=== PATIENT | female | born 1955 | race Caucasian/White ===

== ENCOUNTER → 2016-10-23 | Outpatient (CLI) | payer MEDICARE ==
[~2016-10-23] MED LIST: CELEXA40 MG PO; CYCLOBENZAPRINE10 MG PO; DAYPRO600 M1 PO; IBU800 MG PO; LOVASTATIN20 MG PO; MORPHINE SULFAT15 M7 PO; OXYBUTYNIN5 MG PO; PERCOCET 325 MG1 TA7 PO; ROBAXIN750 MG PO; ROXICODONE30 MG PO; Synthroid,Levo25 MCG PO; TRILEPTAL600 MG PO; VICODIN HP 6601 TAB PO; VIT D PO; [UNRECOGNIZED DRUG - OTHER] PO
== END ==
LOC: RAD 20:14
DX: G89.29 Other chronic pain (principal); M25.561 Pain in right knee; M25.861 Other specified joint disorders, right knee

== ENCOUNTER → 2016-11-14 | Day surgery (SDC) | payer MEDICARE ==
[~2016-11-14] VITALS: Ht 160 cm; Wt 62.6 kg
[~2016-11-14] MED LIST changes: +CYMBALTA30 MG PO; +NEURONTIN100 MG PO
[2016-11-14 10:37] VITALS: BP 160/88
[2016-11-14 11:14] VITALS: BP 120/47
[2016-11-14 11:29] VITALS: BP 104/61
[2016-11-14 11:44] VITALS: BP 115/70
== END | disposition home or self-care (01) ==
LOC: SDC 11-12 10:15
DX: Z09 Encounter for follow-up examination after completed treatment for conditions other than malignant neoplasm (principal); D12.3 Benign neoplasm of transverse colon; K44.9 Diaphragmatic hernia without obstruction or gangrene; K29.50 Unspecified chronic gastritis without bleeding; K22.2 Esophageal obstruction; E78.00 Pure hypercholesterolemia, unspecified; F32.9 Major depressive disorder, single episode, unspecified; J44.9 Chronic obstructive pulmonary disease, unspecified; E03.9 Hypothyroidism, unspecified; F17.210 Nicotine dependence, cigarettes, uncomplicated; Z90.710 Acquired absence of both cervix and uterus; Z85.3 Personal history of malignant neoplasm of breast; Z86.010 Personal history of colon polyps

== ENCOUNTER → 2016-12-11 | Outpatient (CLI) | payer MEDICARE ==
[2016-12-11 19:13] LABS: BODY FLUID RBC < 1000 /uL; BODY FLUID WBC 184 /uL
[2016-12-11 20:19] LABS: BF LYMPHOCYTES 18 %; BF MONOCYTES 81 %; BF NEUTROPHILS 1 %
[2016-12-11 20:20] LABS: BODY FLUID TYPE SYNOVIAL
== END | disposition home or self-care (01) ==
LOC: LAB 16:44
PROVIDERS: Orthopaedic Surgery
DX: M25.561 Pain in right knee (principal); M25.461 Effusion, right knee

== ENCOUNTER → 2016-12-20 | Outpatient (CLI) | payer MEDICARE | END | disposition home or self-care (01) | LOC: MRI 03:00 | DX: M25.461 Effusion, right knee (principal) ==

== ENCOUNTER → 2017-07-05 | Outpatient (CLI) | payer MEDICARE ==
[2017-07-05 13:51] LABS: BASO # 0.1 10*3/uL (0.0-0.1); BASO % 1.1 % (0.0-1.0); EOS # 0.1 10*3/uL (0.0-0.4); EOS % 1.5 % (1.0-4.0); HEMATOCRIT 42.2 % (37.0-47.0); HEMOGLOBIN 14.2 g/dl (12.0-16.0); LYMPH # 1.5 10*3/uL (1.3-4.4); MEAN CELL VOLUME 92.7 fl (81.0-99.0); MEAN CORPUSCULAR HGB 31.2 pg (27.0-31.0); MEAN CORPUSCULAR HGB CONC 33.6 g/dl (33.0-37.0); MEAN PLATELET VOLUME 10.6 fl (9.6-12.3); MONO # 0.5 10*3/uL (0.1-1.0); MONO % 9.2 % (3.0-9.0); NEUT # 3.1 10*3/uL (2.3-7.9); NEUT % 58.8 % (47.0-73.0); PLATELET COUNT AUTOMATED 232 10*3/uL (130-400); RED BLOOD COUNT 4.55 10*6/uL (4.10-5.10); RED CELL DISTRI WIDTH 12.5 % (0-14.5); WHITE BLOOD COUNT 5.3 10*3/uL (4.8-10.8)
[2017-07-06 08:10] LABS: RHEUMATOID ARTHRITIS FACTOR <10.0 IU/mL (0.0-13.9)
[2017-07-06 12:06] LABS: ANTI-RNP ANTIBODIES <0.2 AI (0.0-0.9)
[2017-07-07 11:04] LABS: LUPUS DRVVT 34.6 sec (0.0-47.0); LUPUS REFLEX INTERPRETATION Comment: (.); PTT-LA 36.7 sec (0.0-51.9)
[2017-07-07 21:06] LABS: CCP ANTIBODIES IGG/IGA 4 units (0-19)
== END | disposition home or self-care (01) ==
LOC: LAB 13:02
PROVIDERS: Orthopaedic Surgery
DX: M25.461 Effusion, right knee (principal)

== ENCOUNTER → 2017-09-26 | Outpatient (CLI) | payer MEDICARE | END | disposition home or self-care (01) | LOC: RAD 22:14 | DX: M51.36 Other intervertebral disc degeneration, lumbar region (principal) ==

== ENCOUNTER → 2017-10-09 | Outpatient (CLI) | payer MEDICARE ==
[~2017-10-09] MED LIST changes: +ATARAX,VISTARIL50 MG PO; +FLONASE ALLERG9.9 ML NAS; +METOPROLOL SUCC25 M2 PO; +NICOTROL10 MG INH; +PANTOPRAZOLE SO40 MG PO; +PRILOSEC20 M1 PO; +Vitamin D PO; +ZESTRIL,PRINIVIL5 MG PO
== END | disposition home or self-care (01) ==
LOC: RAD 15:46
DX: M79.672 Pain in left foot (principal); Z91.81 History of falling

== ENCOUNTER 2017-10-29 16:15 | Inpatient (IN) | payer MEDICARE ==
[~2017-10-29] VITALS: Ht 160 cm; Wt 63.2 kg
--- NOTE | ~2017-10-29 | CON ---
[place], [place] REPORT OF CONSULTATION NAME: CAILIN SPEAR [facility] #: [id number] UNIT #: [id number] ROOM: 415 DOCTOR: REY DUNCAN MD BIRTHDATE: [birth year] DOS: 10/30/2017 CARDIOLOGY CONSULTATION REASON FOR CONSULTATION: Chest pain. HISTORY OF PRESENT ILLNESS: The patient is a 62-year-old woman, who has no previous history of heart disease. She does have a history of cigarette abuse and a family history of heart disease in her father, who had a heart attack at age 50. She does have a hiatal hernia with gastroesophageal reflux. She states that she has had some brief episodes of chest pain, which usually resolve with a glass of milk. These come on at times and have come on at rest or when she is shopping. On the night of 10/28/2017, she was awakened from sleep by sharp pain. This started in her left anterior chest and radiated into her back. Once again, it was relieved by milk. She was seen on 10/29/2017 by her primary care provider, Nupur Burger. Ms. Burger noted that the patient had recently had a screening CT scan of the chest done at the [facility] and that it showed an aneurysm. Because of the chest pain and her abnormal CAT scan, the patient was sent to the hospital for evaluation and admission. Since she has been here, she has had no further chest pains. Her electrocardiograms have been normal and cardiac troponin levels have been normal. PAST MEDICAL HISTORY: Includes the followin. Breast cancer about 2005. She is status post lymph node dissection of the left axilla and had subsequent radiation and chemotherapy. 2. Hiatal hernia with gastroesophageal reflux disease. 3. Hyperlipidemia. 4. Hypothyroidism. 5. Tobacco abuse, long-term and ongoing. 6. History of appendectomy, hysterectomy and neck surgery. MEDICATIONS: Prior to admission, Flonase nasal spray daily, Cymbalta 20 mg daily, gabapentin 300 mg t.i.d., levothyroxine 25 mcg daily, lovastatin 20 mg daily and omeprazole 20 mg daily. ALLERGIES: The patient has no known drug allergies. FAMILY HISTORY: Positive for her father having heart attack at the age of 50. Her mother has hyperlipidemia. REVIEW OF SYSTEMS: The patient denies diplopia or loss of vision. She denies lightheadedness or syncope. She denies orthopnea or PND. She does have dyspnea with exertion. She does have a chronic nonproductive cough. She denies fevers, chills, sweats or recent weight change. Denies nausea or vomiting. She denies hemoptysis or hematemesis. She denies change in bowel or bladder habits. Denies blood in her urine or stools. She denies any peripheral edema. She denies any skin rashes. Remainder review of systems is negative except as noted above. [place], [place] REPORT OF CONSULTATION NAME: CAILIN SPEAR UNIT #: [id number] ROOM: 415 DOCTOR: REY DUNCAN MD BIRTHDATE: [birth year] SOCIAL HISTORY: The patient is . She does smoke a pack of cigarettes a day along with one marijuana joint per day. She does not consume alcohol. PHYSICAL EXAMINATION: GENERAL: The patient is well-nourished white female, who is awake, alert and oriented. VITAL SIGNS: Pulse is 80 and regular, blood pressure 148/90. She is afebrile. She weighs 63.2 kg and has a body mass index of 24.7. HEENT: Normocephalic and atraumatic. Extraocular muscles are intact. Sclerae are clear. Pupils are equal, round and react to light. The oral mucosa is moist. Tongue is midline. NECK: Supple. She has no jugular distention. Carotids are full. There are no bruits. She has no neck or supraclavicular masses, no thyromegaly. LUNGS: Respirations are unlabored. Her chest is clear. She does have expiratory prolongation and scattered wheezes. She has no rales. She has no chest wall tenderness or presacral edema. CARDIOVASCULAR: Her heart has a regular rhythm with a soft S4 gallop, but no S3 or murmur. The PMI is not displaced. There is no precordial heave, lift or thrill. Palpation of the anterior chest does elicit some pain, but does not reproduce her presenting symptoms. ABDOMEN: Soft and normally active without masses, organomegaly or bruits. EXTREMITIES: Showed no clubbing, cyanosis or edema. There was no Homans sign. Pedal pulses were full and equal bilaterally. LABORATORY DATA: I reviewed her electrocardiograms, which showed sinus rhythm and were normal tracings. Chest x-ray was normal image. IMPRESSION: 1. Atypical chest pain. Her pains come on at times and are relieved by milk. Most likely, this represents esophageal spasm or gastroesophageal reflux; however, she does have risk factors, and therefore, further cardiac assessment is indicated. 2. Reported abnormal CT scan of the chest with possible thoracic aneurysm. These records have been requested from the [facility]. 3. Ongoing cigarette abuse. 4. Hyperlipidemia. 5. Elevated blood pressure noted recently. PLAN: We will further her evaluation with a pharmacologic stress test. Further recommendations will depend upon the results of the stress test and review of the CAT scan of her chest. If her blood pressure does remain elevated and if she has a thoracic aneurysm, at a minimum, she should be treated with a beta-chano. Follow up will depend on the size of the aneurysm as it is present. [facility] and I thank the hospitalist physicians for asking our advice regarding her care. [place], [place] REPORT OF CONSULTATION NAME: CAILIN SPEAR UNIT #: [id number] ROOM: [facility] DOCTOR: REY DUNCAN MD BIRTHDATE: [birth year] REY DUNCAN MD CM:CONSTR:REPORT OF CONSULTATION 1330 10/31/17 0425 interface
[~2017-10-29 16:15] MED LIST changes: -ATARAX,VISTARIL50 MG PO; -FLONASE ALLERG9.9 ML NAS; -METOPROLOL SUCC25 M2 PO; -NICOTROL10 MG INH; -PANTOPRAZOLE SO40 MG PO; -PRILOSEC20 M1 PO; -Vitamin D PO; -ZESTRIL,PRINIVIL5 MG PO
[2017-10-29 16:18] VITALS: BP 162/100
[2017-10-29 16:44] LABS: BASO # 0.1 10*3/uL (0.0-0.1); EOS # 0.1 10*3/uL (0.0-0.4); HEMATOCRIT 39.8 % (37.0-47.0); HEMOGLOBIN 13.7 g/dl (12.0-16.0); LYMPH # 1.9 10*3/uL (1.3-4.4); LYMPH % 31.1 % (27.0-41.0); MEAN CELL VOLUME 92.6 fl (81.0-99.0); MEAN CORPUSCULAR HGB 31.9 pg (27.0-31.0); MEAN CORPUSCULAR HGB CONC 34.4 g/dl (33.0-37.0); MEAN PLATELET VOLUME 10.3 fl (9.6-12.3); MONO # 0.6 10*3/uL (0.1-1.0); MONO % 9.3 % (3.0-9.0); NEUT # 3.4 10*3/uL (2.3-7.9); NEUT % 56.3 % (47.0-73.0); PLATELET COUNT AUTOMATED 202 10*3/uL (130-400); RED CELL DISTRI WIDTH 12.6 % (0-14.5); WHITE BLOOD COUNT 6.1 10*3/uL (4.8-10.8)
[2017-10-29 16:53] LABS: ACT PARTIAL THROMBO TIME 24.9 SECONDS (20.8-31.5); INTERNATIONAL NORM RATIO 0.9 (2.0-3.5)
[2017-10-29 17:01] VITALS: BP 172/109
[2017-10-29 17:02] LABS: ALBUMIN 3.9 gm/dl (3.1-4.5); ALKALINE PHOSPHATASE 90 U/L (45-117); BUN 12 mg/dl (7-24); CHLORIDE 109 mmol/L (98-107); CREATININE 0.74 mg/dL (0.55-1.02); POTASSIUM 3.7 mmol/L (3.5-5.1); SGOT/AST 14 IU/L (3-35); SGPT/ALT 27 U/L (12-78); SODIUM 143 mmol/L (136-145); TOTAL PROTEIN 7.1 gm/dL (6.4-8.2)
[2017-10-29 17:03] LABS: TROPONIN I < 0.015 ng/ml (<0.045)
[2017-10-29 17:15] VITALS: BP 153/100
[2017-10-29 17:38] VITALS: BP 165/100
[2017-10-29 18:00] VITALS: BP 150/90
[2017-10-29] MEDS ORDERED: PRILOSEC20 M1 PO (19:04)
[2017-10-29] MEDS ORDERED: FLONASE ALLERG9.9 ML NAS (19:05)
[2017-10-29 20:00] VITALS: BP 138/87
[2017-10-30] VITALS: BP 125/76; BP 138/87
[2017-10-30 06:07] LABS: BASO # 0.1 10*3/uL (0.0-0.1); BASO % 1.2 % (0.0-1.0); EOS # 0.2 10*3/uL (0.0-0.4); EOS % 3.7 % (1.0-4.0); HEMATOCRIT 40.2 % (37.0-47.0); HEMOGLOBIN 13.7 g/dl (12.0-16.0); LYMPH # 2.1 10*3/uL (1.3-4.4); LYMPH % 42.8 % (27.0-41.0); MEAN CELL VOLUME 93.9 fl (81.0-99.0); MEAN CORPUSCULAR HGB CONC 34.1 g/dl (33.0-37.0); MEAN PLATELET VOLUME 10.7 fl (9.6-12.3); MONO # 0.5 10*3/uL (0.1-1.0); MONO % 11.1 % (3.0-9.0); PLATELET COUNT AUTOMATED 193 10*3/uL (130-400); RED BLOOD COUNT 4.28 10*6/uL (4.10-5.10); RED CELL DISTRI WIDTH 12.8 % (0-14.5); WHITE BLOOD COUNT 4.9 10*3/uL (4.8-10.8)
[2017-10-30 06:23] LABS: ALBUMIN 3.6 gm/dl (3.1-4.5); ALKALINE PHOSPHATASE 88 U/L (45-117); BUN 13 mg/dl (7-24); CHLORIDE 109 mmol/L (98-107); CREATININE 0.75 mg/dL (0.55-1.02); PHOSPHOROUS 3.9 mg/dL (2.5-4.9); POTASSIUM 4.1 mmol/L (3.5-5.1); SGOT/AST 16 IU/L (3-35); SGPT/ALT 27 U/L (12-78); SODIUM 145 mmol/L (136-145); TOTAL PROTEIN 6.6 gm/dL (6.4-8.2)
[2017-10-30 08:00] VITALS: BP 116/61; BP 142/83
[2017-10-30 09:20] LABS: VITAMIN D, 25-HYDROXY 27.8 ng/mL (30-100)
[2017-10-30 12:00] VITALS: BP 148/90
[2017-10-30 16:00] VITALS: BP 145/83
[2017-10-30] MEDS ORDERED: METOPROLOL SUCC25 M2 PO (16:44)
[2017-10-30] MEDS ORDERED: ZESTRIL,PRINIVIL5 MG PO (16:44)
[2017-10-30] MEDS ORDERED: Vitamin D PO (16:44)
[2017-10-30] MEDS ORDERED: ATARAX,VISTARIL50 MG PO (16:44)
[2017-10-30] MEDS ORDERED: PANTOPRAZOLE SO40 MG PO (16:44)
[2017-10-30] MEDS ORDERED: NICOTROL10 MG INH (17:25)
== END 2017-10-30 18:08 | disposition home or self-care (01) | DRG 392 ==
LOC: ED 16:15 → EDHOLD 17:33 → 4E 17:33
PROVIDERS: Emergency Medicine; Internal Medicine Hospice and Palliative Medicine
PROC: 4A02XM4 Measurement of Cardiac Total Activity, External Approach (ICD-10-PCS; principal; 2017-10-30)
PROC: 3E073KZ Introduction of Other Diagnostic Substance into Coronary Artery, Percutaneous Approach (ICD-10-PCS; principal; 2017-10-30)
DX: K21.9 Gastro-esophageal reflux disease without esophagitis (principal); E83.41 Hypermagnesemia; I71.2 Thoracic aortic aneurysm, without rupture; E87.8 Other disorders of electrolyte and fluid balance, not elsewhere classified; E03.9 Hypothyroidism, unspecified; R03.0 Elevated blood-pressure reading, without diagnosis of hypertension; F12.10 Cannabis abuse, uncomplicated; K44.9 Diaphragmatic hernia without obstruction or gangrene; E78.00 Pure hypercholesterolemia, unspecified; E78.5 Hyperlipidemia, unspecified; F17.210 Nicotine dependence, cigarettes, uncomplicated; F41.1 Generalized anxiety disorder; F32.9 Major depressive disorder, single episode, unspecified; Z79.899 Other long term (current) drug therapy; Z71.6 Tobacco abuse counseling; Z90.12 Acquired absence of left breast and nipple; Z82.49 Family history of ischemic heart disease and other diseases of the circulatory system; Z90.49 Acquired absence of other specified parts of digestive tract; Z90.710 Acquired absence of both cervix and uterus; Z85.3 Personal history of malignant neoplasm of breast

== ENCOUNTER → 2017-11-20 | Outpatient (CLI) | payer MEDICARE ==
[~2017-11-20] MED LIST changes: +ATARAX,VISTARIL50 MG PO; +FLONASE ALLERG9.9 ML NAS; +METOPROLOL SUCC25 M2 PO; +NICOTROL10 MG INH; +PANTOPRAZOLE SO40 MG PO; +PRILOSEC20 M1 PO; +Vitamin D PO; +ZESTRIL,PRINIVIL5 MG PO
== END | disposition home or self-care (01) ==
LOC: CARD 09:19
DX: I08.1 Rheumatic disorders of both mitral and tricuspid valves (principal); I71.2 Thoracic aortic aneurysm, without rupture; F17.200 Nicotine dependence, unspecified, uncomplicated; E78.2 Mixed hyperlipidemia

== ENCOUNTER → 2018-02-24 | Outpatient (CLI) | payer MEDICARE | END | disposition home or self-care (01) | LOC: RAD 10:01 | DX: M79.672 Pain in left foot (principal); M79.675 Pain in left toe(s); M25.475 Effusion, left foot ==

== ENCOUNTER → 2018-07-10 | Outpatient (CLI) | payer MEDICARE | END | disposition home or self-care (01) | LOC: MAMMO 10:48 | DX: R92.8 Other abnormal and inconclusive findings on diagnostic imaging of breast (principal); Z85.3 Personal history of malignant neoplasm of breast ==

== ENCOUNTER → 2018-08-18 | Outpatient (CLI) | payer MEDICARE | END | disposition home or self-care (01) | LOC: ORTHO 01:19 | DX: M19.032 Primary osteoarthritis, left wrist (principal); M19.031 Primary osteoarthritis, right wrist ==

== ENCOUNTER → 2019-02-23 | Outpatient (CLI) | payer MEDICARE | END | disposition home or self-care (01) | LOC: RAD 15:45 | DX: R25.2 Cramp and spasm (principal) ==

== ENCOUNTER → 2019-06-05 | Outpatient (CLI) | payer MEDICARE | END | disposition home or self-care (01) | LOC: MRI 13:32 | DX: M19.011 Primary osteoarthritis, right shoulder (principal); M75.01 Adhesive capsulitis of right shoulder ==

== ENCOUNTER → 2020-04-21 | Outpatient (CLI) | payer MEDICARE | END | disposition home or self-care (01) | LOC: COVID19 16:04 | PROVIDERS: ATTEND Nurse Practitioner Family | DX: R05 Cough (principal); K62.5 Hemorrhage of anus and rectum; R09.81 Nasal congestion; R19.5 Other fecal abnormalities; Z20.828 Contact with and (suspected) exposure to other viral communicable diseases ==

== ENCOUNTER → 2020-06-10 | Outpatient (CLI) | payer MEDICARE | END | disposition home or self-care (01) | LOC: COVID19 10:48 | PROVIDERS: ATTEND Nurse Practitioner Family | DX: U07.1 COVID-19 (principal) ==

== ENCOUNTER → 2020-08-24 | Outpatient (CLI) | payer MEDICARE | END | disposition home or self-care (01) | LOC: RAD 16:17 | PROVIDERS: ATTEND Nurse Practitioner Family | DX: J15.9 Unspecified bacterial pneumonia (principal); R06.2 Wheezing; R05 Cough; M51.34 Other intervertebral disc degeneration, thoracic region ==

== ENCOUNTER → 2020-10-26 | Outpatient (CLI) | payer MEDICARE | END | disposition home or self-care (01) | LOC: RAD 14:25 | PROVIDERS: ATTEND Nurse Practitioner Family | DX: M51.36 Other intervertebral disc degeneration, lumbar region (principal); M48.061 Spinal stenosis, lumbar region without neurogenic claudication; M25.78 Osteophyte, vertebrae ==

== ENCOUNTER → 2021-02-17 | Outpatient (CLI) | payer MEDICARE | END | disposition home or self-care (01) | LOC: CARD 09:09 | PROVIDERS: ATTEND Nurse Practitioner Family | DX: I10 Essential (primary) hypertension (principal); R55 Syncope and collapse; F32.9 Major depressive disorder, single episode, unspecified; F12.20 Cannabis dependence, uncomplicated ==

== ENCOUNTER → 2021-07-20 | Outpatient (CLI) | payer MEDICARE | END | disposition home or self-care (01) | LOC: MAMMO 10:04 | PROVIDERS: ATTEND Nurse Practitioner Family | DX: Z12.31 Encounter for screening mammogram for malignant neoplasm of breast (principal) ==

== ENCOUNTER 2022-05-10 14:31 | Emergency (ER) | payer MEDICARE ==
[~2022-05-10] VITALS: Ht 160 cm; Wt 58.1 kg
[2022-05-10 15:37] LABS: BASO % 0.8 % (0.0-1.0); HEMATOCRIT 38.7 % (37.0-47.0); LYMPH # 1.1 10*3/uL (1.3-4.4); LYMPH % 27.1 % (27.0-41.0); MEAN CELL VOLUME 93.9 fl (81.0-99.0); MEAN CORPUSCULAR HGB 31.8 pg (27.0-31.0); MEAN CORPUSCULAR HGB CONC 33.9 g/dl (33.0-37.0); MEAN PLATELET VOLUME 10.4 fl (9.6-12.3); MONO # 0.8 10*3/uL (0.1-1.0); MONO % 19.8 % (3.0-9.0); NEUT % 50.8 % (47.0-73.0); PLATELET COUNT AUTOMATED 176 10*3/uL (130-400); RED BLOOD COUNT 4.12 10*6/uL (4.10-5.10); RED CELL DISTRI WIDTH 13.3 % (0-14.5)
[2022-05-10 15:57] LABS: ALKALINE PHOSPHATASE 88 U/L (46-116); BUN 16 mg/dl (9-23); CHLORIDE 106 mmol/L (98-107); POTASSIUM 3.9 mmol/L (3.4-5.1); SGPT/ALT 26 U/L (10-49); TOTAL PROTEIN 6.3 gm/dL (6.0-8.0)
== END 2022-05-10 19:40 | disposition home or self-care (01) ==
LOC: ED 14:31
PROVIDERS: Student in an Organized Health Care Education/Training Program
DX: R55 Syncope and collapse (principal); Z79.899 Other long term (current) drug therapy; Z90.49 Acquired absence of other specified parts of digestive tract; Z90.89 Acquired absence of other organs; Z98.890 Other specified postprocedural states; Z87.891 Personal history of nicotine dependence

== ENCOUNTER → 2022-05-23 | Outpatient (CLI) | payer MEDICARE | END | disposition home or self-care (01) | LOC: RAD 15:49 | PROVIDERS: ATTEND Nurse Practitioner Family | DX: U07.1 COVID-19 (principal); R55 Syncope and collapse; F17.210 Nicotine dependence, cigarettes, uncomplicated; F12.90 Cannabis use, unspecified, uncomplicated; Z86.79 Personal history of other diseases of the circulatory system; Z98.890 Other specified postprocedural states ==

== ENCOUNTER → 2023-02-11 | Outpatient (CLI) | payer MEDICARE ==
[2023-02-13 12:07] LABS: SACCHAROMYCES CEREVISIAE IGA <20.0 Units (0.0-24.9)
== END | disposition home or self-care (01) ==
LOC: LAB 14:57
PROVIDERS: ATTEND Nurse Practitioner Family
DX: K62.5 Hemorrhage of anus and rectum (principal)

== ENCOUNTER → 2023-03-18 | Outpatient (CLI) | payer MEDICARE ==
[2023-03-18 13:10] LABS: BASO # 0.1 10*3/uL (0.0-0.1); BASO % 1.2 % (0.0-1.0); EOS # 0.1 10*3/uL (0.0-0.4); HEMATOCRIT 43.4 % (37.0-47.0); LYMPH # 1.9 10*3/uL (1.3-4.4); LYMPH % 31.1 % (27.0-41.0); MEAN CELL VOLUME 93.3 fl (81.0-99.0); MEAN CORPUSCULAR HGB 32.7 pg (27.0-31.0); MEAN PLATELET VOLUME 10.5 fl (9.6-12.3); MONO # 0.6 10*3/uL (0.1-1.0); NEUT # 3.4 10*3/uL (2.3-7.9); NEUT % 55.5 % (47.0-73.0); PLATELET COUNT AUTOMATED 237 10*3/uL (130-400); RED BLOOD COUNT 4.65 10*6/uL (4.10-5.10)
[2023-03-18 13:35] LABS: ALKALINE PHOSPHATASE 100 U/L (46-116); BUN 11 mg/dl (9-23); CHLORIDE 108 mmol/L (98-107); CHOLESTEROL 181 mg/dL (<200); LDL CHOLESTEROL 110 mg/dL (9-159); POTASSIUM 4.2 mmol/L (3.4-5.1); SGPT/ALT 23 U/L (5-49); TOTAL PROTEIN 6.8 gm/dL (6.0-8.0); TRIGLYCERIDES 82 mg/dl (<150)
== END | disposition home or self-care (01) ==
LOC: LAB 12:47
PROVIDERS: ATTEND Nurse Practitioner Family
DX: E78.2 Mixed hyperlipidemia (principal); E03.9 Hypothyroidism, unspecified; I10 Essential (primary) hypertension; F41.9 Anxiety disorder, unspecified; M25.511 Pain in right shoulder; F32.A Depression, unspecified

== ENCOUNTER → 2023-04-25 | Outpatient (CLI) | payer MEDICARE ==
[2023-04-25 11:57] LABS: BASO # 0.1 10*3/uL (0.0-0.1); BASO % 1.4 % (0.0-1.0); BILIRUBIN Negative (Negative); BLOOD Negative (Negative); CLARITY Clear (Clear); COLOR Yellow (Yellow); EOS # 0.1 10*3/uL (0.0-0.4); EOS % 2.6 % (1.0-4.0); GLUCOSE Negative (Negative); HEMATOCRIT 45.2 % (37.0-47.0); KETONE Negative (Negative); LEUKO ESTERASE Negative (Negative); LYMPH # 1.5 10*3/uL (1.3-4.4); LYMPH % 31.1 % (27.0-41.0); MEAN CORPUSCULAR HGB 31.5 pg (27.0-31.0); MEAN CORPUSCULAR HGB CONC 32.5 g/dl (33.0-37.0); MEAN PLATELET VOLUME 10.8 fl (9.6-12.3); MONO # 0.5 10*3/uL (0.1-1.0); MONO % 9.7 % (3.0-9.0); NEUT # 2.7 10*3/uL (2.3-7.9); NEUT % 54.8 % (47.0-73.0); NITRITE Negative (Negative); PLATELET COUNT AUTOMATED 218 10*3/uL (130-400); RED BLOOD COUNT 4.66 10*6/uL (4.10-5.10); RED CELL DISTRI WIDTH 12.3 % (0-14.5); UROBILINOGEN 0.2 E.U./dl (0.0-1.0)
[2023-04-25 12:18] LABS: BACTERIA 3+; MUCOUS 2+
[2023-04-25 12:36] LABS: ALKALINE PHOSPHATASE 99 U/L (46-116); BUN 13 mg/dl (9-23); CHLORIDE 109 mmol/L (98-107); POTASSIUM 4.3 mmol/L (3.4-5.1); SGPT/ALT 23 U/L (5-49); TOTAL PROTEIN 6.8 gm/dL (6.0-8.0)
== END | disposition home or self-care (01) ==
LOC: LAB 11:29
PROVIDERS: ATTEND Urology
DX: N20.0 Calculus of kidney (principal)

== ENCOUNTER → 2023-05-21 | Outpatient (CLI) | payer MEDICARE | END | disposition home or self-care (01) | LOC: RAD 14:37 | PROVIDERS: ATTEND Nurse Practitioner Family | DX: F41.9 Anxiety disorder, unspecified (principal); F43.10 Post-traumatic stress disorder, unspecified; M25.511 Pain in right shoulder; F32.A Depression, unspecified ==

== ENCOUNTER → 2023-06-27 | Outpatient (CLI) | payer MEDICARE | END | disposition home or self-care (01) | LOC: MAMMO 02:41 | PROVIDERS: ATTEND Nurse Practitioner Family | DX: R59.0 Localized enlarged lymph nodes (principal); Z85.3 Personal history of malignant neoplasm of breast; Z72.0 Tobacco use ==

== ENCOUNTER 2023-08-13 13:47 | Emergency (ER) | payer MEDICARE ==
[~2023-08-13] VITALS: Ht 160 cm; Wt 54.9 kg
[2023-08-13] MEDS ORDERED: Acetaminophen/Hydrocodone 5 MG/325 MG TABLET PO ONE (14:25)
[2023-08-13] MEDS ORDERED: CYCLOBENZAPRINE10 MG PO (15:38)
== END 2023-08-13 15:43 | disposition home or self-care (01) ==
LOC: ED 13:47
DX: S46.911A Strain of unspecified muscle, fascia and tendon at shoulder and upper arm level, right arm, initial encounter (principal); F32.A Depression, unspecified; J44.9 Chronic obstructive pulmonary disease, unspecified; I10 Essential (primary) hypertension; E03.9 Hypothyroidism, unspecified; Z90.49 Acquired absence of other specified parts of digestive tract; Z90.710 Acquired absence of both cervix and uterus; Z90.89 Acquired absence of other organs; Z98.890 Other specified postprocedural states; Z90.12 Acquired absence of left breast and nipple; F12.90 Cannabis use, unspecified, uncomplicated; F17.200 Nicotine dependence, unspecified, uncomplicated; X50.1XXA Overexertion from prolonged static or awkward postures, initial encounter; Y93.89 Activity, other specified; Y92.89 Other specified places as the place of occurrence of the external cause; Y99.8 Other external cause status

== ENCOUNTER → 2023-09-13 | Outpatient (CLI) | payer MEDICARE ==
[2023-09-13 14:04] LABS: BUN 14 mg/dl (9-23)
== END | disposition home or self-care (01) ==
LOC: LAB 13:28
PROVIDERS: ATTEND Surgery
DX: Z85.3 Personal history of malignant neoplasm of breast (principal)

== ENCOUNTER → 2023-11-20 | Outpatient (CLI) | payer MEDICARE ==
[2023-11-20 17:15] LABS: BILIRUBIN Negative (Negative); BLOOD Negative (Negative); CLARITY Cloudy (Clear); COLOR Yellow (Yellow); GLUCOSE Negative (Negative); KETONE Negative (Negative); LEUKO ESTERASE 3+ (Negative); NITRITE Positive (Negative); UROBILINOGEN 0.2 E.U./dl (0.0-1.0)
[2023-11-20 17:33] LABS: BACTERIA 4+
[2023-11-20 17:34] LABS: WBC TNTC wbc/hpf (0-5)
== END | disposition home or self-care (01) ==
LOC: LAB 16:57
PROVIDERS: ATTEND Nurse Practitioner Family
DX: R30.0 Dysuria (principal)

== ENCOUNTER → 2023-12-12 | Outpatient (CLI) | payer MEDICARE ==
[2023-12-12 16:09] LABS: BASO # 0.1 10*3/uL (0.0-0.1); BASO % 0.9 % (0.0-1.0); EOS % 0.3 % (1.0-4.0); HEMATOCRIT 39.1 % (37.0-47.0); LYMPH # 2.7 10*3/uL (1.3-4.4); LYMPH % 29.4 % (27.0-41.0); MEAN CELL VOLUME 93.1 fl (81.0-99.0); MEAN CORPUSCULAR HGB 31.2 pg (27.0-31.0); MEAN CORPUSCULAR HGB CONC 33.5 g/dl (33.0-37.0); MEAN PLATELET VOLUME 10.4 fl (9.6-12.3); MONO % 10.8 % (3.0-9.0); NEUT # 5.4 10*3/uL (2.3-7.9); NEUT % 58.2 % (47.0-73.0); PLATELET COUNT AUTOMATED 212 10*3/uL (130-400); RED CELL DISTRI WIDTH 13.3 % (0-14.5); WHITE BLOOD COUNT 9.3 10*3/uL (4.8-10.8)
[2023-12-12 16:33] LABS: ALKALINE PHOSPHATASE 105 U/L (46-116); BUN 14 mg/dl (9-23); CHLORIDE 109 mmol/L (98-107); CHOLESTEROL 172 mg/dL (<200); LDL CHOLESTEROL 98 mg/dL (9-159); POTASSIUM 3.5 mmol/L (3.4-5.1); SGPT/ALT 29 U/L (5-49); TRIGLYCERIDES 97 mg/dl (<150)
== END | disposition home or self-care (01) ==
LOC: LAB 15:51
PROVIDERS: ATTEND Nurse Practitioner Family
DX: M19.012 Primary osteoarthritis, left shoulder (principal); I10 Essential (primary) hypertension; E78.2 Mixed hyperlipidemia; E03.9 Hypothyroidism, unspecified; M25.512 Pain in left shoulder; F41.9 Anxiety disorder, unspecified

== ENCOUNTER → 2024-01-10 | Outpatient (CLI) | payer MEDICARE | END | disposition home or self-care (01) | LOC: CT 09:20 | PROVIDERS: ATTEND Specialist/Technologist Athletic Trainer | DX: M19.011 Primary osteoarthritis, right shoulder (principal); Z96.619 Presence of unspecified artificial shoulder joint ==

== ENCOUNTER → 2024-06-10 | Outpatient (CLI) | payer MEDICARE ==
[2024-06-10 17:37] LABS: BILIRUBIN Negative (Negative); BLOOD Negative (Negative); CLARITY Clear (Clear); COLOR Dark Yellow (Yellow); GLUCOSE Negative (Negative); KETONE Trace (Negative); LEUKO ESTERASE 1+ (Negative); NITRITE Negative (Negative); PH 5.5 (4.5-8.0); SPECIFIC GRAVITY 1.025 (1.001-1.030)
[2024-06-10 17:49] LABS: BACTERIA 1+; CALCIUM OXALATE CRYSTALS 1+; MUCOUS 3+; RBC 0-2 rbc/hpf (0-2)
== END | disposition home or self-care (01) ==
LOC: ZRHCWE 16:38
PROVIDERS: ATTEND Nurse Practitioner Family
DX: R30.0 Dysuria (principal)

== ENCOUNTER → 2024-08-06 | Outpatient (CLI) | payer MEDICARE ==
[2024-08-06 16:55] LABS: ALKALINE PHOSPHATASE 97 U/L (46-116); BASO # 0.1 10*3/uL (0.0-0.1); BASO % 1.1 % (0.0-1.0); BUN 12 mg/dl (9-23); CHLORIDE 108 mmol/L (98-107); CHOLESTEROL 154 mg/dL (<200); EOS # 0.2 10*3/uL (0.0-0.4); EOS % 2.6 % (1.0-4.0); HEMATOCRIT 42.5 % (37.0-47.0); LDL CHOLESTEROL 96 mg/dL (9-159); MEAN CELL VOLUME 94.7 fl (81.0-99.0); MEAN CORPUSCULAR HGB 31.2 pg (27.0-31.0); MEAN CORPUSCULAR HGB CONC 32.9 g/dl (33.0-37.0); MEAN PLATELET VOLUME 10.9 fl (9.6-12.3); MONO # 0.7 10*3/uL (0.1-1.0); MONO % 12.7 % (3.0-9.0); NEUT # 3.3 10*3/uL (2.3-7.9); PLATELET COUNT AUTOMATED 271 10*3/uL (130-400); RED BLOOD COUNT 4.49 10*6/uL (4.10-5.10); RED CELL DISTRI WIDTH 13.2 % (0-14.5); SGPT/ALT 17 U/L (5-49); TOTAL PROTEIN 6.6 gm/dL (6.0-8.0); TRIGLYCERIDES 67 mg/dl (<150); WHITE BLOOD COUNT 5.7 10*3/uL (4.8-10.8)
== END | disposition home or self-care (01) ==
LOC: LAB 13:52
PROVIDERS: ATTEND Nurse Practitioner Family
DX: Z13.1 Encounter for screening for diabetes mellitus (principal); G62.9 Polyneuropathy, unspecified; F41.9 Anxiety disorder, unspecified; I10 Essential (primary) hypertension; E03.9 Hypothyroidism, unspecified; E78.2 Mixed hyperlipidemia

== ENCOUNTER → 2024-08-31 | Outpatient (CLI) | payer MEDICARE | END | disposition home or self-care (01) | LOC: RAD 01:17 | PROVIDERS: ATTEND Nurse Practitioner Family | DX: Z13.820 Encounter for screening for osteoporosis (principal); M85.88 Other specified disorders of bone density and structure, other site; Z78.0 Asymptomatic menopausal state; Z90.710 Acquired absence of both cervix and uterus ==

== ENCOUNTER → 2024-10-16 | Outpatient (CLI) | payer MEDICARE | END | disposition home or self-care (01) | LOC: LAB 17:51 | PROVIDERS: ATTEND Nurse Practitioner Family | DX: R30.0 Dysuria (principal) ==

== ENCOUNTER → 2024-10-20 | Outpatient (CLI) | payer MEDICARE | END | disposition home or self-care (01) | LOC: WOUNDCARE 03:42 | PROVIDERS: ATTEND Nurse Practitioner Family | DX: S81.812A Laceration without foreign body, left lower leg, initial encounter (principal); I73.9 Peripheral vascular disease, unspecified; I10 Essential (primary) hypertension; E78.00 Pure hypercholesterolemia, unspecified; E03.9 Hypothyroidism, unspecified; K21.9 Gastro-esophageal reflux disease without esophagitis; F17.210 Nicotine dependence, cigarettes, uncomplicated; Z90.710 Acquired absence of both cervix and uterus; Z96.611 Presence of right artificial shoulder joint; Z98.890 Other specified postprocedural states; Z79.899 Other long term (current) drug therapy; X58.XXXA Exposure to other specified factors, initial encounter; Y93.89 Activity, other specified; Y92.89 Other specified places as the place of occurrence of the external cause; Y99.8 Other external cause status ==

== ENCOUNTER → 2024-10-27 | Outpatient (CLI) | payer MEDICARE | END | disposition home or self-care (01) | LOC: WOUNDCARE 03:17 | PROVIDERS: ATTEND Nurse Practitioner Family | DX: S81.812D Laceration without foreign body, left lower leg, subsequent encounter (principal); I73.9 Peripheral vascular disease, unspecified; I10 Essential (primary) hypertension; E03.9 Hypothyroidism, unspecified; E78.00 Pure hypercholesterolemia, unspecified; K21.9 Gastro-esophageal reflux disease without esophagitis; F17.210 Nicotine dependence, cigarettes, uncomplicated; Z96.611 Presence of right artificial shoulder joint; Z90.710 Acquired absence of both cervix and uterus; Z98.890 Other specified postprocedural states; Z79.899 Other long term (current) drug therapy; X58.XXXD Exposure to other specified factors, subsequent encounter ==

== ENCOUNTER 2024-11-13 10:22 | Emergency (ER) | payer MEDICARE ==
[~2024-11-13] VITALS: Ht 160 cm; Wt 53.5 kg
[~2024-11-13 10:22] MED LIST changes: +ARIPIPRAZOLE2 MG PO; +CETIRIZINE10 MG PO; +CYMBALTA60 MG PO; +LISINOPRIL20 MG PO; +NICODERM CQ1 EAC1 TD; +OMEPRAZOLE MAGN20 MG PO; +OMEPRAZOLE10 MG PO; +OXYBUTYNIN10 MG PO; +PREGABALIN200 MG PO; +SYNTHROID25 MCG PO; +TRAMADOL HCL50 MG PO
[2024-11-13] MEDS ORDERED: Acetaminophen/Oxycodone 5 MG/325 MG TABLET PO ONE (10:35)
[2024-11-13] MEDS ORDERED: ANTIVERT25 M2 PO (10:54)
[2024-11-13] MEDS ORDERED: Acetaminophen/Oxycodone 5 MG/325 MG TABLET ONE (10:56)
== END 2024-11-13 11:03 | disposition home or self-care (01) ==
LOC: ED 10:22
DX: S01.01XA Laceration without foreign body of scalp, initial encounter (principal); F32.A Depression, unspecified; F41.9 Anxiety disorder, unspecified; E78.5 Hyperlipidemia, unspecified; Z79.899 Other long term (current) drug therapy; Z90.49 Acquired absence of other specified parts of digestive tract; Z90.710 Acquired absence of both cervix and uterus; Z87.891 Personal history of nicotine dependence; W18.39XA Other fall on same level, initial encounter; Y93.89 Activity, other specified; Y92.89 Other specified places as the place of occurrence of the external cause; Y99.8 Other external cause status

== ENCOUNTER → 2024-11-14 | Outpatient (CLI) | payer MEDICARE ==
[~2024-11-14] MED LIST changes: +ANTIVERT25 M2 PO
== END | disposition home or self-care (01) ==
LOC: US 06:25
PROVIDERS: ATTEND Internal Medicine Gastroenterology
DX: K76.0 Fatty (change of) liver, not elsewhere classified (principal); R11.0 Nausea

== ENCOUNTER → 2025-02-26 | Outpatient (CLI) | payer MEDICARE | END | disposition home or self-care (01) | LOC: ORTHO 00:15 | PROVIDERS: ATTEND Orthopaedic Surgery | DX: M19.032 Primary osteoarthritis, left wrist (principal); G56.03 Carpal tunnel syndrome, bilateral upper limbs ==

== ENCOUNTER → 2025-03-09 | Day surgery (SDC) | payer MEDICARE ==
[~2025-03-09] VITALS: Ht 160 cm; Wt 53.5 kg
[~2025-03-09] MED LIST changes: +ACETAMINOPHEN 50 ML IV ONE; +ALENDRONATE SOD70 M1 PO; +ARTIFICIAL TEAR1514 OP; +CALCIUM500 M1 PO; +Lactated Ringer's Solution 1,000 ML IV ONE; +Lidocaine Hydrochloride 30 ML VIAL ONE; +Lidocaine Hydrochloride 5 ML VIAL IV ONE; +PROPOFOL 200 MG/20 ML VIAL IV ONE; +VENT7GM INH; +ceFAZolin sodium/sodium chlor 10 ML IV ONE; +ceFAZolin sodium/sodium chlor 10 ML IV SCH
[2025-03-09 06:30] VITALS: BP 118/88
[2025-03-09 07:08] LABS: BUN 10 mg/dl (9-23)
[2025-03-09 07:55] VITALS: BP 128/85
[2025-03-09 08:10] VITALS: BP 127/83
[2025-03-09 08:25] VITALS: BP 149/86
== END | disposition home or self-care (01) ==
LOC: SDC 03-05 14:00
PROVIDERS: ATTEND Orthopaedic Surgery
DX: G56.02 Carpal tunnel syndrome, left upper limb (principal); J45.909 Unspecified asthma, uncomplicated; E03.9 Hypothyroidism, unspecified; E78.00 Pure hypercholesterolemia, unspecified; I10 Essential (primary) hypertension; F32.A Depression, unspecified; F12.90 Cannabis use, unspecified, uncomplicated; F41.9 Anxiety disorder, unspecified; K21.9 Gastro-esophageal reflux disease without esophagitis; K76.0 Fatty (change of) liver, not elsewhere classified; Z98.890 Other specified postprocedural states; Z90.710 Acquired absence of both cervix and uterus; Z90.49 Acquired absence of other specified parts of digestive tract; Z79.899 Other long term (current) drug therapy

== ENCOUNTER → 2025-03-30 | Day surgery (SDC) | payer MEDICARE ==
[~2025-03-30] VITALS: Ht 160 cm; Wt 53.5 kg
[~2025-03-30] MED LIST changes: -ACETAMINOPHEN 50 ML IV ONE; +BUPIVACAINE 0.5% 30 ML SINGLE DOSE VIAL IJ ONE; +Midazolam Hydrochloride 2 MG/2 ML VIAL IV ONE; +Ondansetron Hydrochloride 4 MG/2 ML VIAL IV ONE; +Water, Sterile 10 ML VIAL IV ONE; -ceFAZolin sodium/sodium chlor 10 ML IV ONE; -ceFAZolin sodium/sodium chlor 10 ML IV SCH
[2025-03-30 09:15] VITALS: BP 156/95
[2025-03-30 12:41] VITALS: BP 156/83
[2025-03-30 12:56] VITALS: BP 160/83
[2025-03-30 13:11] VITALS: BP 176/86
== END | disposition home or self-care (01) ==
LOC: SDC 03-26 12:30
PROVIDERS: ATTEND Orthopaedic Surgery
DX: G56.01 Carpal tunnel syndrome, right upper limb (principal); E03.9 Hypothyroidism, unspecified; I10 Essential (primary) hypertension; I71.9 Aortic aneurysm of unspecified site, without rupture; F32.A Depression, unspecified; F41.9 Anxiety disorder, unspecified; J44.9 Chronic obstructive pulmonary disease, unspecified; K21.9 Gastro-esophageal reflux disease without esophagitis; K44.9 Diaphragmatic hernia without obstruction or gangrene; F17.200 Nicotine dependence, unspecified, uncomplicated; F12.90 Cannabis use, unspecified, uncomplicated; Z90.710 Acquired absence of both cervix and uterus; Z90.49 Acquired absence of other specified parts of digestive tract; Z98.890 Other specified postprocedural states; Z79.890 Hormone replacement therapy; Z79.899 Other long term (current) drug therapy